=== PATIENT | male | born 1980 ===

== ENCOUNTER → 2021-01-01 | Outpatient (CLI) | payer BC | LOC: DIA.ED 08:28 | DX: E11.9 Type 2 diabetes mellitus without complications (principal); E78.5 Hyperlipidemia, unspecified; Z79.84 Long term (current) use of oral hypoglycemic drugs | CPT/HCPCS: G0108 ==

== ENCOUNTER → 2021-02-20 | Outpatient (CLI) | payer BC | LOC: DIA.ED 02-05 14:27 | DX: E11.65 Type 2 diabetes mellitus with hyperglycemia (principal); Z79.84 Long term (current) use of oral hypoglycemic drugs; E78.5 Hyperlipidemia, unspecified; I10 Essential (primary) hypertension | CPT/HCPCS: G0108 ==

== ENCOUNTER 2022-05-20 02:32 | Emergency (ER) | payer BC ==
[~2022-05-20] VITALS: Ht 185.4 cm; Wt 129.5 kg
[2022-05-20 02:38] VITALS: TEMP 97.7
[2022-05-20 03:45] LABS: BASO % 0.2 % (0.0-2.0); EOS # 0.1 K/mm3 (0.0-0.7); EOS % 0.7 % (0.0-4.0); GRAN # 9.4 K/mm3 (1.4-6.5); GRAN % 73.1 % (42.2-75.2); LYMPH % 15.7 % (20.0-51.0); MEAN CELL VOLUME 83 fl (80.0-100.0); MEAN CORPUSCULAR HGB CONC 34 g/dl (33.0-37.0); MEAN PLATELET VOLUME 10.1 fl (7.4-10.4); MONO # 1.3 K/mm3 (0.1-0.6); PLATELET COUNT 288 K/mm3 (130-400); RED BLOOD COUNT 6.53 M/mm3 (4.20-5.60); REDCELL DISTRIBUTION WIDTH-CV 13.3 % (11.5-14.5)
[2022-05-20 03:47] LABS: HEMOGLOBIN 18.2 g/dl (13.5-18.0); MEAN CORPUSCULAR HEMOGLOBIN 28 pg (27-31)
[2022-05-20 04:03] LABS: ALBUMIN 4.4 gm/dL (3.5-5.0); CALCIUM 9.8 mg/dL (8.4-10.2); CREATININE, serum 1.4 mg/dL (0.72-1.25); POTASSIUM 4.3 mmol/L (3.5-4.5); TOTAL PROTEIN 8.2 gm/dL (6.2-8.1)
[2022-05-20 05:00] VITALS: BP 124/90; PULSE 122
[2022-05-20] MEDS ORDERED: PREDNISONE20 MG PO (05:06)
[2022-05-20] MEDS ORDERED: COMPAZINE 110 MG/TAB PO (05:07)
== END 2022-05-20 05:15 | disposition home or self-care (01) ==
LOC: COL.ER 02:32
PROVIDERS: Personal Emergency Response Attendant
DX: T78.40XA Allergy, unspecified, initial encounter (principal); T45.0X5A Adverse effect of antiallergic and antiemetic drugs, initial encounter; R11.2 Nausea with vomiting, unspecified; R19.7 Diarrhea, unspecified; R73.9 Hyperglycemia, unspecified; R00.0 Tachycardia, unspecified
CPT/HCPCS: J1200; J1790; J2930; J7030